=== PATIENT | female | born 1975 | race Caucasian/White ===

== ENCOUNTER 2016-03-08 12:31 | Emergency (ER) | payer MEDICARE, MEDICAID ==
[2016-03-08 12:37] VITALS: BP 157/72
[2016-03-08] MEDS ORDERED: NS 0.9% 1000 ML* 1,000 ML IV ONE (17:19)
[2016-03-08] MEDS ORDERED: fentaNYL* 50 MCG/ML 2 ML VIAL (100 MCG VIAL) IV ONE (17:19)
[2016-03-08] MEDS ORDERED: Ondansetron ODT TAB* 4 MG PO ONE (17:19)
[2016-03-08 18:23] LABS: Urine Bilirubin Negative (Negative); Urine Glucose Negative (Negative); Urine Nitrite Negative (Negative)
[2016-03-08 19:26] LABS: Potassium 3.9 mmol/L (3.5-5.0)
[2016-03-08 19:27] LABS: Albumin 4.4 g/dL (3.2-5.2); BUN/Creatinine Ratio 15.5 (8-20); C Reactive Protein 4.21 mg/L (< 5.00); Calcium 9.8 mg/dL (8.6-10.3); EGFR African American 116.1 (>60); EGFR Non-African American 90.3 (>60); Globulin 3.1 g/dL (2-4); Total Bilirubin 0.4 mg/dL (0.2-1.0); Total Protein 7.5 g/dL (6.4-8.9)
[2016-03-08] MEDS ORDERED: Iohexol 300* (CONTRAST) 10 ML SDV IV ONE (19:32)
--- NOTE | 2016-03-08 20:25 | RAD ---
INDICATION: LEFT side abdominal pain. Few episodes of emesis. COMPARISON: June 01, 2014 pelvic ultrasound and February 14, 2006 CT. TECHNIQUE: Multidetector CT images were obtained from the lung bases to the ischial tuberosities with 150 mL Omnipaque 300 IV and oral contrast. Multiplanar reformation. REPORT: Images through the inferior thorax are remarkable for mild cardiomegaly. 19.8 cm cephalocaudal liver is decreased in density consistent with fatty infiltration. No focal hepatic lesions evident. No CT abnormality of the gallbladder or pancreas. Negative for biliary dilatation. Unremarkable spleen. Small splenule at the splenic hilum. Negative for CT abnormality of the upper GI, small bowel, or appendix visualized on axial images 58-60. No CT abnormality of the colon. The colon is largely decompressed from the distal transverse colon through the rectum. Negative for ascites, free air, or hernias. Normal adrenal glands. Symmetric nephrograms and pyelograms. Normal variant extrarenal pelves. 1.5 cm nodule anterior and approximating the upper pole of the LEFT kidney is unchanged compared with the 2006 exam and demonstrates similar contrast enhancement and washout to the kidney most consistent with an accessory lobule of renal cortical tissue without concern given stability compared with the 2006 exam. No suspicious focal renal lesions. Unremarkable ureters and urinary bladder. Unremarkable anteverted uterus and RIGHT adnexal region. 9.0 x 10.0 x 9.7 cm sharply circumscribed thin-walled water density cystic lesion likely arises from the LEFT ovary or broad ligament is new compared with the 2006 exam. This may represent a new lesion compared with the 2014 ultrasound or interval enlargement of one of the previously noted LEFT ovarian cysts measuring up to 3.1 cm on the June 01, 2014 ultrasound exam. Negative for lymphadenopathy. Normal diameter abdominal aorta and common iliac arteries. Physiologic distention of the IVC. Obese body habitus and polyarticular degenerative arthropathy. No suspicious focal osseous lesions evident. IMPRESSION: Large water density cyst measuring up to 10 cm diameter in the LEFT para midline lower abdomen/pelvis likely arising from the LEFT ovary or broad ligament. While obesity will limit acoustic window consider pelvic ultrasound suggested for further assessment.
[2016-03-08 20:57] LABS: Add Diff/Slide Review? Slide Review Added; Comments Flag Yes; Hematocrit 22 % (35-47); Hemoglobin 6.5 g/dl (12.0-16.0); Mean Corpuscular HGB Conc 30 g/dl (31-36); Mean Corpuscular Hemoglobin 19 pg (27-31); Mean Corpuscular Volume 65 fL (80-97); Mean Platelet Volume 8 um3 (7.4-10.4); Red Blood Count 3.35 10^6/ul (4.0-5.4); Red Cell Distribution Width 19 % (10.5-15); White Blood Count 15.8 10^3/ul (3.5-10.8)
[2016-03-08 21:17] LABS: Hypochromasia 2+; Microcytosis 2+; Polychromasia 1+
[2016-03-08] MEDS ORDERED: Ferrous Sulfate TAB* 325 MG PO ONE (21:17)
[2016-03-08 21:19] LABS: Add Path Review? YES
--- NOTE | 2016-03-08 22:43 | RAD ---
Indication: Large LEFT para midline probable LEFT ovarian cyst noted on CT of the same date. Comparison: CT of the same date. Technique: Transabdominal pelvic ultrasound. Report: 13.8 x 4.8 x 6.6 cm anteverted uterus with 6.5 mm endometrium. No uterine lesions evident. 3.8 x 2.4 x 2.4 cm RIGHT ovary with documented vascular flow is remarkable for a unilocular 2.2 x 2.0 x 2.0 cm cyst without gross complex features consistent with a follicular cyst. 10.0 x 9.5 x 10.0 cm LEFT ovary with documented vascular flow is remarkable for a dominant 9.2 x 8.7 x 9.3 cm unilocular grossly simple cyst with a mildly thickened wall measuring up to 5 mm corresponding with the CT finding. In addition a 3.2 x 2.9 x 2.7 cm hypoechoic lesion of the LEFT ovary grossly devoid of intrinsic vascular flow is identified with suggestion of posterior acoustic enhancement which may represent an endometrioma, hemorrhagic cyst, or solid lesion. Minimal free fluid is noted in the LEFT adnexal region intervening between the ovary and the uterus. IMPRESSION: Enlarged LEFT ovary with dominant 9.2 cm grossly simple appearing cyst with mildly thickened wall. Normal vascular flow to the LEFT ovary documented however this does not exclude incomplete or intermittent torsion. Correlate with clinical presentation. Even in absence of clinical findings suspicious for torsion lesion excision should be considered for histopathologic assessment given the size of the lesion. In addition there is a less specific mildly hyperechoic 3.2 cm lesion of the LEFT ovary grossly devoid of intrinsic vascular flow on Doppler which may represent an endometrioma, hemorrhagic cyst, or solid lesion.
--- NOTE | 2016-03-08 23:08 | ED ---
Jean Oleary Rebecca, scribed for Jose L Nagy MD on 03/08/16 at 1721 . Abdominal Pain/Female - HPI Summary HPI Summary: Pt is a 40 y/o F who presents to ED c/o abd pain. Pain began suddenly at 1030 this morning and has been constant since onset. Pain is discrete to the LLQ without radiation, is characterized as sharp and currently severe, ranked 8/10. Sx aggravated and alleviated by nothing. Additionally c/o N/V and constipation. Denies diarrhea. No previous similar episodes. No medication allergies. PSHx tubal ligation. - History of Current Complaint Chief Complaint: EDAbdPain Stated Complaint: LT SIDE ABD PAIN / VOMITING Time Seen by Provider: 03/08/16 17:14 Hx Obtained From: Patient Onset/Duration: Sudden Onset, Lasting Hours, Still Present Timing: Constant Severity Initially: Moderate Severity Currently: Severe Pain Intensity: 8 Pain Scale Used: 0-10 Numeric Location: Discrete At: LLQ Radiates: No Character: Sharp Aggravating Factor(s): Nothing Alleviating Factor(s): Nothing Associated Signs and Symptoms: Positive: Constipation, Nausea, Vomiting. Negative: Diarrhea Allergies/Adverse Reactions: Allergies Allergy/AdvReac Type Severity Reaction Status Date / Time No Known Allergies Allergy Verified 04/03/15 19:11 PMH/Surg Hx/FS Hx/Imm Hx Endocrine/Hematology History: Reports: Hx Thyroid Disease - synthroid Denies: Hx Anticoagulant Therapy, Hx Diabetes Cardiovascular History: Reports: Hx Hypercholesterolemia, Hx Hypertension - meds Denies: Hx Pacemaker/ICD Respiratory History: Reports: Hx Sleep Apnea - new cpap user, good compliance Denies: Hx Asthma, Hx Chronic Obstructive Pulmonary Disease (COPD) History: Denies: Hx Renal Disease Musculoskeletal History: Reports: Other Musculoskeletal History - obesity Neurological History: Denies: Hx Dementia, Hx Seizures Psychiatric History: Denies: Hx Substance Abuse - Surgical History Surgery Procedure, Year, and Place: TUBAL LIGATION Infectious Disease History: No Infectious Disease History: Denies: Hx Hepatitis, Hx Human Immunodeficiency Virus (HIV), Traveled Outside the [place] in Last 30 Days - Family History Known Family History: Positive: Hypertension, Diabetes - Social History Alcohol Use: None Substance Use Type: Reports: None Hx Tobacco Use: No Smoking Status (MU): Never Smoked Tobacco Have You Smoked in the Last Year: No Review of Systems Positive: Abdominal Pain - LLQ, Vomiting, Nausea. Negative: Diarrhea Positive: other - Constipation All Other Systems Reviewed And Are Negative: Yes Physical Exam - Summary Physical Exam Summary: VITAL SIGNS: Reviewed. GENERAL: Patient is an obese female who is lying comfortable in the stretcher. Patient is not in any acute respiratory distress. HEAD AND FACE: Normocephalic and atraumatic. EYES: PERRLA, EOMI x 2, No injected conjunctiva. EARS: Hearing grossly intact. Ear canals and tympanic membranes are WNL. MOUTH: Oropharynx within normal limits. NECK: Supple, trachea is midline, no adenopathy, no JVD. CHEST: Symmetric, no tenderness at palpation LUNGS: Clear to auscultation bilaterally. No wheezing or crackles. CVS: RRR,, S1 and S2 present, no murmurs or gallops appreciated. ABDOMEN: Soft, LLQ tenderness. No signs of distention. Positive bowel sounds. No rebound no guarding, and no masses palpated. No abdominal bruit or pulsations. EXTREMITIES: FROM in all major joints, no edema, no cyanosis or clubbing. NEURO: Alert and oriented x 3. No acute neurological deficits. Speech is normal. SKIN: Dry and warm Vital Signs On Initial Exam: Initial Vitals Temp Pulse Resp BP Pulse Ox 97.2 F 89 16 157/72 100 03/08/16 12:34 03/08/16 12:34 03/08/16 12:34 03/08/16 12:34 03/08/16 12:34 Diagnostics - Vital Signs Vital Signs Temp Pulse Resp BP Pulse Ox 03/08/16 12:34 97.2 F 89 16 157/72 100 - Laboratory Result Diagrams: 03/08/16 20:45 03/08/16 18:58 Lab Statement: Any lab studies that have been ordered have been reviewed, and results considered in the medical decision making process. - CT CT Abd/Pel CT Interpretation Completed By: Radiologist - Large water density cyst measuring up to 10 cm diameter in the LEFT para midline lower abdomen/pelvis likely arising from the LEFT ovary or broad ligament. While obesity will limit acoustic window consider pelvic ultrasound suggested for further assessment. - Ultrasound No standard instances Ultrasound Interpretation Completed By: Radiologist - Pelvic US - Enlarged LEFT ovary with dominant 9.2 cm grossly simple appearing cyst with mildly thickened wall. Normal vascular flow to the LEFT ovary documented however this does not exclude incomplete or intermittent torsion. Correlate with clinical presentation. Even in absence of clinical findings suspicious for torsion lesion excision should be considered for histopathologic assessment given the size of the lesion. In addition there is a less specific mildly hyperechoic 3.2 cm lesion of the LEFT ovary grossly devoid of intrinsic vascular flow on Doppler which may represent an endometrioma, hemorrhagic cyst, or solid lesion. Abdominal Pain Fem Course/Dx - Course Course Of Treatment: 40 y/o F who presents to ED with a CC of LLQ pain. Pt reports she has been having sx for last couple days, just worse in last couple hours. Denies any N/V/D or constipation. Denies any vaginal discharge or bleeding. LNMP was from the beginning of November to March 04. The pt has been bleeding for approx. 3-4 months. Test results show anemia. Abd/Pel CT shows ovarian cyst which is corroborated with an US. There are no signs of torsion and it has normal flow of the L ovary. The pt was given Fentanyl for the pain and the sx resolved. The pt was observed for the last couple of hours in the ER and the pain did not return. I disclosed my PE and findings with Dr. Lange and he does not recommend any blood transfusion at this time. Recommends an outpatient follow up for further workup and management. Seeing as the pain has resolved and did not return I do not suspect intermittent or partial ovarian torsion. Pt declines pelvic exam. Seeing as patient is asymptomatic patient will be d/c to home with follow up with [facility] which she usually sees an RADIO MECHANIC doctor for. Pt was instructed to return to ED if she develops any other type of pain, any N/V or any vaginal bleeding. The pt is hemodynamically stable, AxOx3. I discussed all the findings and test results with the patient and patient. Patient was instructed to return to the emergency room immediately if any of the symptoms return or worsens. They understand and agree. They were explained the possibility of an early abdominal pathology which was not detected at this time despite the physical exam and testing. They understand and agree. Abdominal exam before discharge: Soft,NT. No signs of distention. BS present. No rebound no guarding, and no masses palpated. Patient is alert and oriented. Patient is hemodynamically stable. Patient is to follow up with primary care physician in the next 24 hours. Patient and patients parents agree and understands. - Diagnoses Provider Diagnoses: Ovarian cyst, Anemia - Provider Notifications Discussed Care Of Patient With: Dr. Lange, RADIO MECHANIC, who advises that she follow up as an outpatient and recommends against a transfusion. Time Discussed With Above Provider: 21:18 Discharge - Discharge Plan Condition: Stable Disposition: HOME Patient Education Materials: Ovarian Cyst (ED), Anemia (ED) Referrals: Jessica Carmona MD [Primary Care Provider] - 3 Days (Follow up with your primary care physician within the next 3 days. ) Lexis Lange MD [Medical Doctor] - 3 Days (Follow up with Dr. Lange, OB/ SHOP TECHNICIAN, within the next 3 days. ) Additional Instructions: Return to ED for any returning or worsening symptoms. The documentation as recorded by the Jean barton Rebecca accurately reflects the service I personally performed and the decisions made by Yakov conway Walter, MD.
== END 2016-03-08 23:22 | disposition home or self-care (01) ==
LOC: ED 12:31
DX: N83.209 Unspecified ovarian cyst, unspecified side (principal); D64.9 Anemia, unspecified; R10.32 Left lower quadrant pain
CPT/HCPCS: 36415; 74177; 76856; 80053; 81003; 82150; 83690; 85025; 85060; 86140; 96361; 96374; 99283; A9270-GY; J3010; Q9967

== ENCOUNTER → 2016-05-26 08:09 | Day surgery (SDC) | payer MEDICARE, MEDICAID ==
[~2016-05-26 08:09] MED LIST: Buffered Lidocaine 1% SYR 3ML* 3 ML/SYR SYRINGE INTRADERM ONE; Bupivacaine 0.5% W/EPI SDV* 30 ML VIAL ONE; Dexamethasone IV* 4 MG/ML 1 ML (4 MG) ONE; Famotidine IV* 10 MG/ML 2 ML (20 mg) IV ONE; Famotidine IV* 10 MG/ML 2 ML (20 mg) ONE; KETAMINE HCL* 50 MG/ML 10 ML VIAL ONE; Ketorolac INJ* 30 MG/ML 1 ML VIAL ONE; Lidocaine 1% INJ* 10 MG/ML 30 ML SDV ONE; Lidocaine 2% PF * 5 ML VIAL ONE; Metoclopramide TAB* 10 MG ONE; Metoclopramide TAB* 10 MG PO ONE; Midazolam* 1 MG/ML 2 ML VIAL (2 MG) ONE; Midazolam* 1 MG/ML 5 ML VIAL (5 MG) ONE; Ondansetron INJ* 2 MG/ML VIAL IV PRN; Ondansetron INJ* 2 MG/ML VIAL ONE; Propofol* 10 MG/ML 20 ML BTL IV PUSH ONE; fentaNYL* 50 MCG/ML 2 ML VIAL (100 MCG VIAL) IV PRN; fentaNYL* 50 MCG/ML 2 ML VIAL (100 MCG VIAL) ONE; oxyCODONE/Acetamin 5/325 MG* TAB PO PRN
--- NOTE | 2016-05-26 11:51 | SURGPN ---
Brief Operative Note - Surgery Procedures: Procedures ANESTH INJECT-SPIN CANAL (02/07/01) ARTIF RUPT MEMBRANES NEC (02/07/01) DX PROC FETUS/AMNION NEC (04/29/98) EPISIOTOMY (05/05/98) MONITORING NOS (02/07/01) LOW CERVICAL (02/07/01) 05/26/16 Op Note Pre-op dx: occult breast cancer Post-op dx: same Procedure: Power port placement Surgeon: Ole Asst: none Anesth: local-MAC EBL 5 cc Complications: none Pt. tolerated procedure well and was transferred to in a stable condition. CLFoster
--- NOTE | 2016-05-26 12:31 | RAD ---
INDICATION: Power port placement. COMPARISON: Comparison is made with a prior chest x-ray study from every 2012. TECHNIQUE: A portable view of the chest was obtained. FINDINGS: There is a power port central venous catheter entering on the right side. The catheter tip projects over the region of the superior vena cava. There appears to be a slight kink in the catheter in the subclavian region. The heart is within normal limits in size. The lungs are underinflated. There are small infiltrates present in the right upper lobe and at the right lung base. No pleural effusion or pneumothorax is seen. IMPRESSION: 1. STATUS POST CENTRAL VENOUS CATHETER PLACEMENT. THERE IS A MILD KINK IN THE CATHETER IN THE SUBCLAVIAN REGION. 2. NO EVIDENCE FOR PNEUMOTHORAX. 3. SMALL RIGHT SIDED INFILTRATES.
--- NOTE | 2016-05-26 12:37 | RAD ---
CPT II Codes: 6045F INDICATION: PowerPort placement Fluoroscopic services provided for referring physician. 98.1 seconds of fluoroscopy time was used. One spot image demonstrates placement of a catheter in the superior vena cava. IMPRESSION: PowerPort placed in the superior vena cava.
[2016-05-26 12:52] VITALS: BP 121/68
--- NOTE | 2016-05-27 00:34 | OP ---
CC: [facility]; [facility] OPERATIVE REPORT: DATE OF OPERATION: 05/26/16 DATE OF : 71 SURGEON: Macrina Handy MD PORTAL ARCHITECT: There was no energy assistant for this case. PRE-OP DIAGNOSIS: Breast cancer. POST-OP DIAGNOSIS: Breast cancer. OPERATIVE PROCEDURE: PowerPort placement. INDICATIONS: Ms. Landeros is a 40-year-old woman, who is to undergo neoadjuvant chemotherapy thus need ing a port. DESCRIPTION OF PROCEDURE: She was brought to the operating room, placed on the OR table in a supine position and given IV sedation. The chest wall was prepped and draped in the usual sterile fashion after infiltrating with local anesthetic using a Seldinger technique. Wire was placed in the right subclavian vein under fluoroscopic visualization. Then, a port pocket was created. This was done by making an incision on the chest wall after infiltrating with local anesthetic and creating a pock et using electrocautery inferiorly. Once the pocket was of a size to accommodate the port, the cath eter was tunneled from the wire exit site to the port pocket site and then under fluoroscopic visual ization, the dilator and the introducer were placed over the wire into the right subclavian vein and then the dilator and wire were removed and the catheter was advanced through the introducer into th e right subclavian vein in to the superior vena cava under fluoroscopic visualization. The patient' s body habitus was such that there was a very short distance between the subclavian vein and the hea rt so the tip was barely in the superior vena cava. It was trimmed to the appropriate length and at tached to the port. The port was inserted into the pocket and secured to the chest wall using 2- 0 Surgipro stitches. The function of the port was checked. Then closure of the incision was accompli shed with 3-0 Polysorb in a subcutaneous layer and the skin was closed with 4-0 Surgipro in a subcut icular fashion. Steri-Strips and a dry sterile dressing were applied. All sponge and instrument co unts were correct. The patient tolerated the procedure well and was transferred to Recovery in a st able condition. [id number]/[facility] #: [id number]
== END | disposition home or self-care (01) ==
LOC: OR 08:09
PROVIDERS: ATTEND Surgery
PROC: 0JH60XZ Insertion of Tunneled Vascular Access Device into Chest Subcutaneous Tissue and Fascia, Open Approach (ICD-10-PCS; principal; 2016-05-26 09:30)
DX: C50.912 Malignant neoplasm of unspecified site of left female breast (principal)
CPT/HCPCS: 71010; 76000; A9270-GY; C1788; J1100; J1642; J1885; J2250; J2405; J2704; J3010

== ENCOUNTER 2016-11-10 07:08 | Day surgery (SDC) | payer MEDICARE, MEDICAID ==
[~2016-11-10 07:08] MED LIST changes: +Buffered Lidocaine 0.9% SYRIN* 5 ML/SYR SYRINGE INTRADERM ONE; +Buffered Lidocaine 0.9% SYRIN* 5 ML/SYR SYRINGE ONE; -Buffered Lidocaine 1% SYR 3ML* 3 ML/SYR SYRINGE INTRADERM ONE; -Bupivacaine 0.5% W/EPI SDV* 30 ML VIAL ONE; -Dexamethasone IV* 4 MG/ML 1 ML (4 MG) ONE; -Famotidine IV* 10 MG/ML 2 ML (20 mg) IV ONE; -Famotidine IV* 10 MG/ML 2 ML (20 mg) ONE; +Heparin VIAL(*) 5000 UNITS/ML VIAL (FIVE THOUSAND) ONE; -KETAMINE HCL* 50 MG/ML 10 ML VIAL ONE; -Ketorolac INJ* 30 MG/ML 1 ML VIAL ONE; -Lidocaine 1% INJ* 10 MG/ML 30 ML SDV ONE; -Lidocaine 2% PF * 5 ML VIAL ONE; +Lidocaine 2.5%/Prilocain 2.5%* 5 GM TUBE ONE; -Metoclopramide TAB* 10 MG ONE; -Metoclopramide TAB* 10 MG PO ONE; -Midazolam* 1 MG/ML 2 ML VIAL (2 MG) ONE; -Midazolam* 1 MG/ML 5 ML VIAL (5 MG) ONE; -Ondansetron INJ* 2 MG/ML VIAL IV PRN; -Ondansetron INJ* 2 MG/ML VIAL ONE; -Propofol* 10 MG/ML 20 ML BTL IV PUSH ONE; -fentaNYL* 50 MCG/ML 2 ML VIAL (100 MCG VIAL) IV PRN; -fentaNYL* 50 MCG/ML 2 ML VIAL (100 MCG VIAL) ONE; -oxyCODONE/Acetamin 5/325 MG* TAB PO PRN
[2016-11-10] MEDS ORDERED: Bupivacaine 0.5% SDV PF* 30 ML VIAL ONE (09:39)
[2016-11-10] MEDS ORDERED: Lidocaine 1% INJ* 10 MG/ML 30 ML SDV ONE (09:39)
[2016-11-10] MEDS ORDERED: Lidocaine 1% MPF wEPI 200,000* 30 ML SDV ONE (09:39)
[2016-11-10] MEDS ORDERED: Famotidine IV* 10 MG/ML 2 ML (20 mg) IV ONE (09:40)
[2016-11-10] MEDS ORDERED: Dexamethasone IV* 4 MG/ML 1 ML (4 MG) IV SLOW PU ONE (09:40)
[2016-11-10] MEDS ORDERED: Dexamethasone IV* 4 MG/ML 1 ML (4 MG) ONE (09:43)
[2016-11-10] MEDS ORDERED: Famotidine IV* 10 MG/ML 2 ML (20 mg) ONE (09:43)
[2016-11-10] MEDS ORDERED: Midazolam* 1 MG/ML 2 ML VIAL (2 MG) ONE (09:44)
[2016-11-10] MEDS ORDERED: fentaNYL* 50 MCG/ML 2 ML VIAL (100 MCG VIAL) ONE ×3 (09:44→12:05)
[2016-11-10] MEDS ORDERED: Ondansetron INJ* 2 MG/ML VIAL ONE (10:20)
[2016-11-10] MEDS ORDERED: Propofol* 10 MG/ML 20 ML BTL IV PUSH ONE (10:20)
[2016-11-10] MEDS ORDERED: Lidocaine 2% PF * 5 ML VIAL ONE (10:20)
[2016-11-10] MEDS ORDERED: Ketorolac INJ* 30 MG/ML 1 ML VIAL ONE (10:20)
[2016-11-10] MEDS ORDERED: Phenylephrine IV* 40 MCG/ML 10 ML SYRINGE ONE (10:20)
--- NOTE | 2016-11-10 11:44 | SURGPN ---
Brief Operative Note - Surgery Procedures: Procedures ANESTH INJECT-SPIN CANAL (02/07/01) ARTIF RUPT MEMBRANES NEC (02/07/01) DX PROC FETUS/AMNION NEC (04/29/98) EPISIOTOMY (05/05/98) MONITORING NOS (02/07/01) INSERTION OF VAD INTO CHEST SUBCU/FASCIA, OPEN APPROACH (05/26/16) LOW CERVICAL (02/07/01) 11/10/16 Op Note Pre-Op Dx: left breast cancer Post-op dx: same Procedure: needle localization excision of left breast cancer and axillary dissection Surgeon: Ole Asst: Kelton Valdovinos PAS Anesth: general EBL: 25 cc SCDs on during surgery Abx: given pre-op Pt. tolerated procedure well and was transferred to in a stable condition. CLFoster
[2016-11-10] MEDS ORDERED: oxyCODONE/Acetamin 5/325 MG* TAB PO PRN ×2 (11:45)
[2016-11-10] MEDS ORDERED: DiMENhydriNATE IV* 50 MG/ML VIAL IV PUSH PRN (12:01)
[2016-11-10] MEDS ORDERED: fentaNYL* 50 MCG/ML 2 ML VIAL (100 MCG VIAL) IV PRN (12:01)
[2016-11-10] MEDS ORDERED: DiMENhydriNATE IV* 50 MG/ML VIAL ONE (12:05)
--- NOTE | 2016-11-10 12:55 | RAD ---
Indication: Left breast cancer. Informed consent was obtained from the patient. Using usual aseptic technique and lidocaine as a local anesthetic a 7.5 cm needle was placed adjacent to the surgical clip noted in the left breast. A 7.5 cm wire was then placed. Specimen radiograph demonstrates the localized clip to be within the specimen. IMPRESSION: Successful needle localization of radio opaque marker in the left breast.
[2016-11-10] MEDS ORDERED: Metoclopramide IV* 5 MG/ML 2 ML VIAL ONE (12:58)
[2016-11-10] MEDS ORDERED: Scopolamine 1.5 mg* PATCH ONE (12:58)
[2016-11-10] MEDS ORDERED: oxyCODONE/Acetamin 5/325 MG* TAB ONE (14:08)
[2016-11-10 14:36] VITALS: BP 155/79
--- NOTE | 2016-11-11 02:51 | OP ---
AMENDED REPORT NOW INCLUDES DATE OF OPERATION - ESIGNED BEFORE ADJUSTMENT * CC: Dr. Sue Farnsworth; Dr. Shannen Anand; Dr. London Richardson * DATE OF OPERATION: 11/10/16 - [facility] DATE OF : 71 SURGEON: Macrina Handy MD AGENCY RECRUITER: SHARON Richards, ARIES Alas ANESTHESIOLOGIST: Serjio Orona MD ANESTHESIA: General PRE-OP DIAGNOSIS: Left breast cancer. POST-OP DIAGNOSIS: Left breast cancer. OPERATIVE PROCEDURE: Needle localization, excision of left breast cancer and axillary dissection. INDICATIONS: Ms. Landeros is a 41-year-old woman with the diagnosis of breast cancer, who underwent neoadjuvant chemotherapy for known positive breast cancer. She was prepared for surgery after completion of chemotherapy and underwent needle localization on the morning of the surgery. DESCRIPTION OF PROCEDURE: She was brought to the operating room, placed on the OR table in a supine position and given general anesthesia. The left breast and axilla were prepped and draped in the usual sterile fashion. After infiltrating with local anesthetic, a curvilinear incision was made in the breast, positioned over the estimated tip of the wire. Subcutaneous tissue was then divided with electrocautery when the wire was encountered, it was withdrawn through the skin into the wound and continued dissection with electrocautery was done to remove a mass of tissue from around the tip of the wire. The specimen was marked in the usual fashion and handed off, identified as left breast cancer. Hemostasis was assured with electrocautery. The wound was irrigated with saline and clips were placed in the cavity to sonia its confines. Then closure was accomplished. This was done with 3-0 Polysorb in the subcutaneous layer and the skin was closed with 4- 0 Surgipro in a subcuticular fashion. Prior to closing, some additional local was instilled into the wound. Attention was then turned to the axilla here. A curvilinear incision was made. Subcutaneous tissue was divided with electrocautery down to the level of the pectoralis muscle. The axillary contents were identified and swept posteriorly from the pectoralis muscle and inferiorly from the axillary vein. Clips were used to control lymphatic and blood vessels that were encountered. The structures consistent with intercoastal brachial nerve was clipped and divided and then axillary contents were continued to be dissected from surrounding tissue using primarily blunt and some sharp dissection. Once the axillary contents were removed, they were handed off as a specimen. An additional massive form tissue was identified adherent to the latissimus dorsi muscle. This was dissected free and handed off as additional axillary contents. The long thoracic and thoracodorsal nerves were identified by function and found to be intact. Then, the wound was irrigated with saline. Bleeding was controlled with electrocautery and additional clip placement and then closure was accomplished after placing a GIANCARLO drain to emerge from a stab wound in the midaxillary line. A 3- 0 Polysorb was used to close the subcutaneous layer and the skin was closed with 4- 0 Surgipro in the subcuticular fashion. The GIANCARLO drain was secured with a 3-0 Surgipro stitch. All sponge, Steri-Strips and dry sterile dressing were applied to both incisions. All sponge and instrument counts were correct. The patient tolerated the procedure well and was transferred to Recovery in a stable condition. [id number]/[facility] #: [id number] KATHERIN
== END 2016-11-10 14:37 | disposition home or self-care (01) ==
LOC: SDS 07:08
PROVIDERS: ATTEND Surgery
DX: C50.912 Malignant neoplasm of unspecified site of left female breast (principal); C77.3 Secondary and unspecified malignant neoplasm of axilla and upper limb lymph nodes; E03.9 Hypothyroidism, unspecified; Z68.43 Body mass index [BMI] 50.0-59.9, adult; G47.33 Obstructive sleep apnea (adult) (pediatric); D64.81 Anemia due to antineoplastic chemotherapy
CPT/HCPCS: 88307; A9270-GY; J0690; J1100; J1240; J1644; J1885; J2001; J2250; J2405; J2704; J2765; J3010

== ENCOUNTER 2016-11-17 09:53 | Day surgery (SDC) | payer MEDICARE, MEDICAID ==
[~2016-11-17 09:53] MED LIST changes: -Buffered Lidocaine 0.9% SYRIN* 5 ML/SYR SYRINGE ONE; -Heparin VIAL(*) 5000 UNITS/ML VIAL (FIVE THOUSAND) ONE; -Lidocaine 2.5%/Prilocain 2.5%* 5 GM TUBE ONE
[2016-11-17] MEDS ORDERED: Buffered Lidocaine 0.9% SYRIN* 5 ML/SYR SYRINGE ONE (10:06)
[2016-11-17] MEDS ORDERED: Bupivacaine 0.5% SDV PF* 30 ML VIAL ONE (11:39)
[2016-11-17] MEDS ORDERED: Lidocaine 1% INJ* 10 MG/ML 30 ML SDV ONE (11:39)
[2016-11-17] MEDS ORDERED: ceFAZolin 2 GM PREMIX (*) 50 ML IVPB ONE (11:49)
[2016-11-17] MEDS ORDERED: Midazolam* 1 MG/ML 5 ML VIAL (5 MG) ONE ×2 (11:51→12:17)
[2016-11-17] MEDS ORDERED: fentaNYL* 50 MCG/ML 2 ML VIAL (100 MCG VIAL) ONE ×3 (12:05→13:57)
[2016-11-17] MEDS ORDERED: KETAMINE HCL* 50 MG/ML 10 ML VIAL ONE (12:24)
[2016-11-17] MEDS ORDERED: HYDROmorphone INJ* 1 MG/ML CARPUJECT SYRINGE IV PRN (12:29)
[2016-11-17] MEDS ORDERED: Ondansetron INJ* 2 MG/ML VIAL IV PRN (12:29)
[2016-11-17] MEDS ORDERED: DiMENhydriNATE IV* 50 MG/ML VIAL IV PUSH PRN (12:29)
[2016-11-17] MEDS ORDERED: HYDROcodone/ACETAMIN 5-325 MG* 1 TAB PO PRN ×2 (12:29→13:49)
[2016-11-17] MEDS ORDERED: oxyCODONE TAB* 5 MG TAB PO PRN (12:29)
[2016-11-17] MEDS ORDERED: Propofol* 10 MG/ML 20 ML BTL IV PUSH ONE (13:10)
--- NOTE | 2016-11-17 13:43 | SURGPN ---
Brief Operative Note - Surgery Procedures: Pre op dx: Left breast cancer Post op dx: same Procedure: Wide re-excision left breast cancer Anesthesia: MAC/ local - Dr. Valero Surgeon: Dr. Handy Assist: Kelton BRADFORD EBL: ~100 mL Specimen: Left breast CA Fluids: LR 1600 mL Drains: GIANCARLO drain Findings: see dictation
[2016-11-17] MEDS: fentaNYL* 50 MCG/ML 2 ML VIAL (100 MCG VIAL) IV PRN ×3 (14:00→14:15)
[2016-11-17] MEDS ORDERED: HYDROcodone/ACETAMIN 5-325 MG* 1 TAB ONE (14:44)
[2016-11-17 15:24] VITALS: BP 141/89
--- NOTE | 2016-11-18 05:38 | OP ---
CC: [facility]; [facility]; Dr. Shannen Anand; Dr. London Richardson OPERATIVE REPORT: DATE OF OPERATION: 11/17/16 DATE OF : 71 SURGEON: Macrina Handy MD FLAME PLANER: Rachel HERRERA student. PRE-OP DIAGNOSIS: Left breast cancer. POST-OP DIAGNOSIS: Left breast cancer. OPERATIVE PROCEDURE: Wide re-excision of left breast cancer. INDICATIONS: Ms. Landeros is a 41-year-old woman who has recently undergone preoperative chemotherapy and then excision of her left breast cancer and axillary dissection. The excision specimen was found to have positive margins and plans were made for wide re-excision. DESCRIPTION OF PROCEDURE: She was brought to the operating room, placed on the OR table in a supine position and given IV sedation. The left breast was prepped and draped in the usual sterile fashion taking care not to dislodge the GIANCARLO drain emerging from the axilla. After infiltrating with local anesthetic, a curvilinear elliptical incision encompassing the previous scar was made and subcutaneous tissue was divided with electrocautery to excise the mass of tissue from around the previous cavity as well as could be obtained. At some places, the tissue split apart opening the cavity, but all effort was made to obtain tissue from completely around the cavity. Once the specimen was out, it was marked in the usual fashion and then handed off as the specimen. The wound was hemostased with electrocautery and suture ligature. Once this appeared adequate, the wound was irrigated with saline and then closure was accomplished. 3-0 Polysorb was used to close the subcutaneous tissue and the skin was closed with 4-0 Surgipro in a subcuticular fashion. Steri-Strips and a dry sterile dressing were applied. All sponge and instrument counts were correct. The patient tolerated the procedure well and was transferred to Recovery in a stable condition. [id number]/[facility] #: [id number] MTDD
== END 2016-11-17 15:25 | disposition home or self-care (01) ==
LOC: OR 09:53
PROVIDERS: ATTEND Surgery
DX: C50.912 Malignant neoplasm of unspecified site of left female breast (principal); I10 Essential (primary) hypertension; E03.9 Hypothyroidism, unspecified; E66.9 Obesity, unspecified; Z68.43 Body mass index [BMI] 50.0-59.9, adult; G47.33 Obstructive sleep apnea (adult) (pediatric); D64.9 Anemia, unspecified
CPT/HCPCS: 88307; J0690; J2001; J2250; J2704; J3010

== ENCOUNTER → 2017-04-04 06:26 | Day surgery (SDC) | payer MEDICARE, MEDICAID ==
[~2017-04-04 06:26] MED LIST changes: +Famotidine TAB* 20 MG ONE; +Famotidine TAB* 20 MG PO ONE; +Scopolamine 1.5 mg* PATCH ONE; +Scopolamine 1.5 mg* PATCH TRANSDERM ONE; +Scopolamine PATCH Remove* 1 NOTE MISC PATCH OFF ONE; +Sodium Citrate/Citric Acid* 15 ML UDC ONE; +Sodium Citrate/Citric Acid* 15 ML UDC PO ONE; +ceFOXitin 2 GM IVPREMIX* 0 GM/0 ML BAG ONE
== END | disposition home or self-care (01) ==
LOC: OR 06:26
PROVIDERS: ATTEND Obstetrics & Gynecology
DX: Z02.9 Encounter for administrative examinations, unspecified (principal)
CPT/HCPCS: A9270-GY; J0694

== ENCOUNTER 2017-08-22 06:22 | Observation (INO) | payer MEDICARE, MEDICAID ==
[~2017-08-22 06:22] MED LIST changes: -Famotidine TAB* 20 MG ONE; -Famotidine TAB* 20 MG PO ONE; -Scopolamine 1.5 mg* PATCH ONE; -Scopolamine 1.5 mg* PATCH TRANSDERM ONE; -Scopolamine PATCH Remove* 1 NOTE MISC PATCH OFF ONE; -Sodium Citrate/Citric Acid* 15 ML UDC ONE; -Sodium Citrate/Citric Acid* 15 ML UDC PO ONE; -ceFOXitin 2 GM IVPREMIX* 0 GM/0 ML BAG ONE
[2017-08-22] MEDS ORDERED: ceFAZolin 2 GM PREMIX (*) 2 GM/50 ML BAG IVPB ONE (06:41)
[2017-08-22] MEDS ORDERED: Buffered Lidocaine 0.9% SYRIN* 5 ML/SYR SYRINGE ONE (06:41)
[2017-08-22] MEDS ORDERED: ceFAZolin 1 GM in Dextrose (*) 1 GM/50 ML BAG IVPB ONE (06:41)
[2017-08-22] MEDS ORDERED: fentaNYL* 50 MCG/ML 2 ML VIAL (100 MCG VIAL) ONE ×2 (07:10→09:06)
[2017-08-22] MEDS ORDERED: Midazolam* 1 MG/ML 2 ML VIAL (2 MG) ONE (07:10)
[2017-08-22] MEDS ORDERED: Bupivacaine 0.5% SDV PF* 30ML VIAL ONE (07:18)
[2017-08-22] MEDS ORDERED: Succinylcholine* 20 MG/ML 10 ML VIAL ONE (07:39)
[2017-08-22] MEDS ORDERED: Cisatracurium* 2 MG/ML MDV 5 ML ONE ×2 (07:39→08:45)
[2017-08-22] MEDS ORDERED: Famotidine IV* 10 MG/ML 2 ML (20 mg) ONE (07:39)
[2017-08-22] MEDS ORDERED: Dexamethasone IV* 4 MG/ML 1 ML (4 MG) ONE (07:39)
[2017-08-22] MEDS ORDERED: Propofol* 10 MG/ML 20 ML BTL IV PUSH ONE ×2 (07:39→07:47)
[2017-08-22] MEDS ORDERED: HYDROmorphone INJ* 0.5 MG/0.5 ML SYRINGE ONE ×2 (07:47→09:06)
[2017-08-22] MEDS ORDERED: DiMENhydriNATE IV* 50 MG/ML VIAL ONE (08:01)
[2017-08-22] MEDS ORDERED: Nalbuphine* 10 MG/ML 1 ML VIAL IV PRN (09:19)
[2017-08-22] MEDS ORDERED: Acetaminophen IV 1GM/100ML * 1,000 MG/100 ML VIAL IVPB ONE (09:19)
[2017-08-22] MEDS ORDERED: Levalbuterol 0.63MG/3ML NEB* UNIT OF USE INH PRN (09:19)
[2017-08-22] MEDS ORDERED: Ondansetron ODT TAB* 4 MG PO PRN (09:19)
[2017-08-22] MEDS ORDERED: fentaNYL* 50 MCG/ML 2 ML VIAL (100 MCG VIAL) IV PRN (09:19)
[2017-08-22] MEDS ORDERED: Naloxone* 0.4 MG/ML 1 ML VIAL IV PRN (09:19)
[2017-08-22] MEDS ORDERED: PROCHLORPERAZINE INJ 5 MG/ML 2 ML VIAL IV PRN (09:19)
[2017-08-22] MEDS ORDERED: oxyCODONE TAB* 5 MG TAB PO PRN (09:19)
[2017-08-22] MEDS ORDERED: HYDROmorphone INJ* 2 MG/ML CARPUJECT SYRINGE ONE (11:06)
[2017-08-22] MEDS: HYDROmorphone INJ* 1 MG/ML CARPUJECT SYRINGE IV PRN ×2 (11:15→11:33)
[2017-08-22] MEDS ORDERED: Nalbuphine* 10 MG/ML 1 ML VIAL ONE (11:26)
[2017-08-22] MEDS ORDERED: oxyCODONE/Acetamin 5/325 MG* TAB ONE ×2 (11:45→11:48)
[2017-08-22] MEDS ORDERED: Ondansetron ODT TAB* 4 MG ONE (11:45)
[2017-08-22] MEDS: oxyCODONE/Acetamin 5/325 MG* TAB PO PRN ×3 (11:47→23:37)
[2017-08-22] MEDS: Docusate CAP* 100 MG PO SCH (12:46)
[2017-08-22] MEDS ORDERED: Ondansetron 40 MG VIAL* 2 MG/ML 20 ML VIAL IV PRN (16:57)
[2017-08-22] MEDS: Ibuprofen TAB* 600 MG PO PRN (17:12)
[2017-08-23 05:55] LABS: ABS Basophils 0 10^3/ul (0-0.2); ABS Eosinophils 0 10^3/ul (0-0.6); ABS Monocytes 0.6 10^3/ul (0-0.8); ABS Neutrophils 8.8 10^3/ul (1.5-7.7); ABS Nucleated RBC 0 10^3/ul; Eosinophil % 0.3 % (0-6); Hematocrit 35 % (35-47); Hemoglobin 11.9 g/dl (12.0-16.0); Lymphocyte % 9.6 % (25-47); Mean Corpuscular HGB Conc 35 g/dl (31-36); Mean Corpuscular Hemoglobin 30 pg (27-31); Mean Corpuscular Volume 86 fL (80-97); Mean Platelet Volume 8.3 um3 (7.4-10.4); Nucleated Red Blood Cells % 0.1; Platelet Count 194 10^3/ul (150-450); Red Blood Count 4.01 10^6/ul (4.00-5.40); Red Cell Distribution Width 14 % (10.5-15); White Blood Count 10.5 10^3/ul (3.5-10.8)
[2017-08-23] MEDS: Ibuprofen TAB* 600 MG PO PRN (08:37)
[2017-08-23] MEDS: Docusate CAP* 100 MG PO SCH (08:37)
[2017-08-23 08:44] VITALS: BP 147/81
[2017-08-23] MEDS ORDERED: Prochlorperazine TAB* 10 MG PO PRN (08:59)
[2017-08-23] MEDS ORDERED: Metoprolol Succinate XL TAB* 25 MG PO SCH (09:00)
[2017-08-23] MEDS ORDERED: Potassium Chlor TAB* 10 MEQ TAB.ER PO SCH (09:00)
[2017-08-23] MEDS ORDERED: Levothyroxine TAB* 112 MCG TAB PO SCH (09:00)
[2017-08-23] MEDS ORDERED: amLODIPine TAB* 5 MG PO SCH (09:00)
[2017-08-23] MEDS ORDERED: Lisinopril TAB* 5 MG PO SCH (09:00)
--- NOTE | 2017-08-23 10:48 | SURGPN ---
Subjective - Introduction -: Mrs. Landeros is a 41 y/o with breast cancer and a persistent/symptomatic left ovarian cystic mass. ] Admitted on: [08/22/17] Patient's surgical date: 08/22/17 Procedure completed: Diagnostic laparoscopy followed by laparotomy left oophorectomy and right salpingoophorectomy and lysis of adhesions. - Medications -: Active Medications Generic Name Dose Route Start Last Admin Trade Name Freq PRN Reason Stop Dose Admin Amlodipine Besylate 10 mg 08/23/17 09:00 08/23/17 10:06 Norvasc Tab* PO 10 mg QAM MICHEAL Administration Atorvastatin Calcium 10 mg 08/23/17 18:00 Lipitor* PO QPM MICHEAL Docusate Sodium 100 mg 08/22/17 11:00 08/23/17 08:37 Colace Cap* PO 100 mg DAILY MICHEAL Administration Lactated Ringer's 1,000 mls @ 125 mls/hr 08/22/17 11:00 08/22/17 21:29 Lactated Ringers 1000 Ml Bag* IV 125 mls/hr PER RATE MICHEAL Administration Ibuprofen 600 mg 08/22/17 10:32 08/23/17 08:37 Motrin Tab* PO 600 mg Q8H PRN Administration PAIN Levothyroxine Sodium 112 mcg 08/23/17 09:00 Synthroid Tab* PO QAM MICHEAL Lisinopril 5 mg 08/23/17 09:00 08/23/17 10:06 Prinivil Tab* PO 5 mg QAM MICHEAL Administration Metoprolol Succinate 75 mg 08/23/17 09:00 08/23/17 10:06 Toprol Xl Tab* PO 75 mg QAM MICHEAL Administration Ondansetron HCl 8 mg 08/22/17 16:57 08/22/17 17:13 Zofran 40 Mg Vial* IV 8 mg Q8H PRN Administration NAUSEA/VOMITING Oxycodone/Acetaminophen 2 tab 08/22/17 10:32 08/22/17 23:37 Percocet 5/325 Tab* PO 2 tab Q4H PRN Administration PAIN Potassium Chloride 10 meq 08/23/17 09:00 08/23/17 10:06 Klor Con Er Tab* PO 10 meq BID MICHEAL Administration Prochlorperazine 10 mg 08/23/17 08:59 Compazine Tab* PO Q6H PRN NAUSEA Tamoxifen Citrate 20 mg 08/23/17 11:00 Nolvadex* PO 1100 MICHEAL - Comments Comments: Patient is post op day #1, She admits to tolerating a regular diet, passing flatus, ambulating and voiding with no difficulty. Her pain is well controlled on PO meds. Objective - Intake and Output -: Intake & Output 08/21/17 08/22/17 08/23/17 08/24/17 06:59 06:59 06:59 06:59 Intake Total 3072 580 Output Total 1625 0 Balance 1447 580 Weight 269 lb Intake: IV Fluids 1942 LR 1942 Oral 1130 580 Output: Urine 1150 0 Barrios 425 Emesis 50 ADLs: Meal Record Start: 08/22/17 13: 05 Freq: Status: Active Protocol: Created 08/22/17 13:05 System (Rec: 08/22/17 13:05 System [id number]) Document 08/22/17 18:27 [id number] (Rec: 08/22/17 18:27 [id number] [id number]) Document 08/23/17 10:18 [id number] (Rec: 08/23/17 10:19 [id number] SSU-C09) Intake and Output Start: 08/22/17 13: 05 Freq: DAILY@0600,1400,2200 Status: Active Protocol: Created 08/22/17 13:05 System (Rec: 08/22/17 13:05 System [id number]) Document 08/22/17 14:00 [id number] (Rec: 08/22/17 14:08 [id number] SSU-C08) Document 08/22/17 14:10 [id number] (Rec: 08/22/17 14:10 [id number] SSU-C04) Document 08/22/17 16:36 [id number] (Rec: 08/22/17 16:36 [id number] SSU-C04) Document 08/22/17 17:00 [id number] (Rec: 08/22/17 17:01 [id number] SSU-C04) Document 08/22/17 18:47 [id number] (Rec: 08/22/17 18:48 [id number] SSU-C08) Document 08/22/17 22:00 [id number] (Rec: 08/22/17 22:36 [id number] SSU-M18) Document 08/22/17 22:37 [id number] (Rec: 08/22/17 22:37 [id number] SSU-M18) Document 08/23/17 00:33 [id number] (Rec: 08/23/17 00:33 [id number] SSU-C09) Document 08/23/17 06:00 [id number] (Rec: 08/23/17 06:06 [id number]) Vital Signs 08/22/17 08/22/17 08/22/17 11:15 11:33 11:47 Temperature 97.5 F Pulse Rate Respiratory 16 16 16 Rate Blood Pressure (mmHg) O2 Sat by Pulse Oximetry 08/22/17 08/22/17 08/22/17 12:59 13:05 14:06 Temperature 96.4 F 97.1 F Pulse Rate 85 79 Respiratory 16 18 15 Rate Blood Pressure 135/72 119/50 (mmHg) O2 Sat by Pulse 97 93 Oximetry 08/22/17 08/22/17 08/22/17 14:55 17:05 18:54 Temperature 96.8 F 97.4 F 97.0 F Pulse Rate 79 94 81 Respiratory 15 16 17 Rate Blood Pressure 112/52 153/78 145/63 (mmHg) O2 Sat by Pulse 94 100 96 Oximetry 08/22/17 08/22/17 08/22/17 19:00 20:00 21:00 Temperature Pulse Rate Respiratory 20 16 16 Rate Blood Pressure (mmHg) O2 Sat by Pulse Oximetry 08/22/17 08/22/17 08/23/17 23:29 23:37 01:30 Temperature 97.9 F Pulse Rate 89 Respiratory 16 20 18 Rate Blood Pressure 110/55 (mmHg) O2 Sat by Pulse 97 Oximetry 08/23/17 08/23/17 08/23/17 03:19 07:36 08:00 Temperature 97.6 F 98.3 F Pulse Rate 71 72 Respiratory 16 16 16 Rate Blood Pressure 109/60 147/81 (mmHg) O2 Sat by Pulse 96 98 Oximetry Laboratory Results - last 24 hr 08/23/17 05:03 WBC 10.5 RBC 4.01 Hgb 11.9 L Hct 35 MCV 86 MCH 30 MCHC 35 RDW 14 Plt Count 194 MPV 8.3 Neut % (Auto) 84.0 H Lymph % (Auto) 9.6 L Brown % (Auto) 5.8 Eos % (Auto) 0.3 Baso % (Auto) 0.3 Absolute Neuts (auto) 8.8 H Absolute Lymphs (auto) 1.0 Absolute Monos (auto) 0.6 Absolute Eos (auto) 0 Absolute Basos (auto) 0 Absolute Nucleated RBC 0 Nucleated RBC % 0.1 Surgical Physical Exam - Comments -: Patient is AAOx3 in no distress. VSS Afebrile Lungs CTA b/l CV RRR Abdomen soft, not distended, normal bowel sounds, tenderness around umbilical and low abdominal incision as expected. Incisions are clean/dry/intact with no erythema, discharge or induration. Both incisions covered with new dressings. Assessment and Plan - Assessment -: Post op day 1 Patiemnt has stable vital signs, tolerating regular diet, voiding without difficulty, ambulating and taking PO meds. Patient is stable for discharge today. - Plan Surgical Plan of Care: Discontinue IV, Discharge Planning - Patient is stable for discharge home today. Discharge instructions and wound care/precautions reviewed with the patient.
[2017-08-23] MEDS ORDERED: Tamoxifen TAB* 10 MG PO SCH (11:00)
[2017-08-23] MEDS: oxyCODONE/Acetamin 5/325 MG* TAB PO PRN (11:48)
[2017-08-23] MEDS ORDERED: Atorvastatin* 10 MG TAB PO SCH (18:00)
--- NOTE | 2017-08-29 12:55 | HP ---
ADMISSION HISTORY AND PHYSICAL: DATE OF ADMISSION: 08/22/17 HISTORY OF PRESENT ILLNESS: Mrs. Landeros is a 41-year-old lady with a diagnosis of breast cancer who has had a persistent left adnexal mass with a normal CA125. She is scheduled to undergo a laparoscopic bilateral salpingo- oophorectomy, possible laparotomy, on 08/22/17. The patient is aware of the indications, contraindications, material risks, benefits, common side effects, and complications of the procedure and its relevant alternatives prior to consent. PAST MEDICAL HISTORY: Breast cancer, morbid obesity, menorrhagia with secondary anemia, back pain, sciatica, thyroid disease, and hypertension. PAST SURGICAL HISTORY: section in 2000, section and tubal ligation in 2008. Wide excision of a breast cancer on 11/17/16, needle localization and excision of left breast cancer and axillary dissection on 11/10. MEDICATIONS: Current medications on admission: 1. Amlodipine. 2. Metoprolol succinate. 3. Levothyroxine. 4. Potassium chloride. 5. Iron. 6. Lisinopril. 7. Vitamin D. 8. Tamoxifen. 9. Vitamin C. ALLERGIES: No known drug allergies. FAMILY HISTORY: Father has hypothyroidism, diabetes, and hypertension. Mother has diabetes and hypertension, and a brother has diabetes. Sister with hypothyroidism and hypertension. SOCIAL HISTORY: Patient is single. Education: High school graduate. She is a nonsmoker. Denies alcohol or drug use. REVIEW OF SYSTEMS: The patient denies chest pain, shortness of breath, nausea, vomiting, or diarrhea. No urinary signs or symptoms. No constitutional signs or symptoms, and no pain complaints. PHYSICAL EXAMINATION GENERAL: This is a well-groomed, normal-appearing obese lady in no distress. VITAL SIGNS: Temperature is 98.6, pulse 84, respiratory rate of 18, blood pressure of 125/75. She is 5 feet tall. She weights 270 pounds with a BMI of 52. NECK: Thyroid is within normal limits with no thyromegaly. LUNGS: Clear to auscultation bilaterally. HEART: Shows a regular rate and rhythm with no abnormal heart sounds. ABDOMEN: Obese, nondistended. Normal bowel sounds. No rebound tenderness and no hepatosplenomegaly, and no CVA tenderness. BREASTS: Examination of the right breast is normal. There is no palpable mass or nodularity. No evidence of skin changes, nipple discharge, and dimpling. Left breast: There is evidence of a healed wide reexcision of the breast cancer tumor. Incision site is clean, dry, and intact with no erythema, no induration, no discharge, no apparent masses palpable, no nipple discharge, and no axillary adenopathy. PELVIC: External genitalia within normal limits. The urethra is normal. The bladder is normal to palpation. The cervix is normal. Vaginal mucosa is normal. Pelvic support is well. The uterus is of normal size, shape, and contour and mobility, and there is no tenderness on palpation. On bimanual exam , she does have a palpable mass on the left adnexal region. RECTAL: She has normal sphincter tone and no hemorrhoids or rectal masses noted. NEUROLOGIC: The patient is awake, alert, oriented x3. She has a grossly normal affect and in good eye contact. IMPRESSION: This is a 41-year-old with a diagnosis of breast cancer, post radiation treatment and chemotherapy on tamoxifen, with a persistent left adnexal mass. PLAN: Laparoscopic bilateral salpingo-oophorectomy, possible laparotomy. Please refer to the patient's history and physical dated 07/13/17, which is also included in the chart. [id number]/[facility] [place] #: [id number] MTDD
--- NOTE | 2017-08-29 22:49 | DS ---
DISCHARGE SUMMARY: DATE OF ADMISSION: 08/22/17 DATE OF DISCHARGE: 08/23/17 HOSPITAL COURSE: Ms. Landeros is a 41-year-old patient with a diagnosis of breast cancer who has had a persistent left adnexal mass. On the date of her admission , 08/22/17, she underwent a right salpingo-oophorectomy and a left oophorectomy via laparotomy. After the surgery, the patient was stable. She was transferred from the recovery room where she recovered well and went to the postoperative surgical unit. On the date of discharge, 08/23/17, the patient had been tolerating regular diet, was passing flatus, was able to ambulate and void without difficulty, and she was taking p.o. medications for pain. She was therefore deemed stable for discharge. She was discharged to follow up in my office in 1 week after her procedure. Discharge instructions were reviewed with the patient. She had a complete blood cell count on 08/23/17, which was within normal limits and the vital signs had remained stable and afebrile. Please refer to the patient's chart for complete review of her vital signs, laboratory values, etc. [id number]/[facility] #: [id number] MTDD
--- NOTE | 2017-08-29 22:57 | OP ---
DATE OF OPERATION: 08/22/17 - ROOM #332 DATE OF : 71 SURGEON: London Richardson MD ORNAMENTAL PAINTER: Brandi Mcfarland MD ANESTHESIA: General anesthetic with endotracheal intubation. PRE-OP DIAGNOSES: 1. Breast cancer. 2. Left adnexal cystic mass. POST-OP DIAGNOSES: 1. Breast cancer. 2. Left adnexal cystic mass, pending pathology. OPERATIVE PROCEDURE: Diagnostic laparoscopy followed by laparotomy with left oophorectomy and right salpingo-oophorectomy. ESTIMATED BLOOD LOSS: Less than 10 cc. SPECIMENS SENT TO PATHOLOGY: Left ovary and right tube and ovary. FLUIDS: She received 1800 cc of IV crystalloid fluid. URINE OUTPUT: 500 cc of clear urine. FINDINGS: The patient was noted laparoscopically to have a left ovarian cystic mass, which was circumferentially adherent to bowel with a precluding laparoscopic removal with left tube densely adherent to bowel as well. She had a normal right tube and ovary, normal uterus. Bowels within normal limits and normal bladder. DESCRIPTION OF PROCEDURE: The patient was taken to the operating room where she was identified. She was placed on the operating table where a general anesthetic with endotracheal intubation was obtained without difficulty. She was then placed in the dorsal lithotomy position, prepped and draped in normal sterile fashion. The bladder was catheterized with Barrios catheter and drained of clear urine. A speculum was introduced into the patient's vagina and the cervix was identified, grasped with a single-tooth tenaculum and through the cervix, a ClearView manipulator was introduced to mobilize the uterus. Attention was then brought on to the patient's abdomen and where a 1-cm infra- umbilical skin incision was made with a knife, carried through to the underlying layer of fascia. The fascia was brought up to the incision, incised with a knife sharply and extended laterally with a Genia clamp. Entry into the peritoneum was confirmed. Through this incision, a 10-mm blunt trocar was introduced and a 10-mm scope was then used to take a survey of the patient's intraabdominal content. Upon entry with the laparoscope, a survey of the patient's intraabdominal and pelvic anatomy revealed that left ovary was adherent circumferentially by bowel with filmy adhesions. The left tube was also adherent to bowel and was not readily visualized. The right ovary and right tube were within normal limits with no adhesions. The uterus appeared normal as well. At this point, we then proceeded to avoid the laparoscopy and proceeded with a laparotomy. The scope was removed from the patient's abdomen and the umbilical incision. The fascia was closed with 0 Polysorb suture in a running fashion and the skin was closed with a 4-0 Monocryl subcuticular stitch. We then proceeded to make a Pfannenstiel skin incision 4 cm above symphysis pubis with a knife and carried through to the underlying layer of fascia. The fascia was then nicked in the midline and extended laterally with curved Carlos scissors and the fascia was then grasped superiorly and inferiorly with Nneka clamps and dissected off sharply from the rectus muscle. The rectus muscle was in the midline bluntly. The peritoneum was identified, grasped with pickups, entered sharply with Metzenbaum scissors and extended superiorly and inferiorly sharply. A Mobius retractor was introduced into the incision and we then proceed to place the patient in a Trendelenburg position. The bowel was mobilized and tacked away with moist and laparotomy sponges. We then proceeded to separate the left ovary from the bowel with sharp dissection off the filmy adhesions surrounding it. Once we were able to completely free the left ovary, the infundibulopelvic ligament was identified. It was clamped with 2 Genia clamps. The ovary was then transected and sent to Pathology. A free tie of 0 Polysorb suture was then tied around the first clamp of the infundibulo-pelvic ligament followed by a Daphne stitch of 0 Polysorb suture and good hemostasis was noted at the pedicle. We could not identify or find the left fallopian tube. We then proceeded to perform a right salpingo-oophorectomy on the patient's right side with a LigaSure device. The infundibulopelvic was identified. We then grasped the infundibulopelvic ligament with the LigaSure. It was coagulated and transected. We continued to transect just beneath the fallopian tube and the fallopian tube and the right ovary were removed using coagulation and sharp dissection with the LigaSure device. At this point, the right tube and ovary were sent to the pathology. The pedicles from this surgery were noted to be completely hemostatic. We proceeded to irrigate the patient's abdomen. Irrigation fluid was removed. All the instruments and the sponges were removed from the patient's abdomen. The peritoneum was then closed using 3-0 Polysorb suture in a running fashion. The fascia was closed using 0 Polysorb suture in a running fashion and the skin was closed with a 4-0 Monocryl subcuticular stitch. Sponge, lap and needle counts were correct x2. She was then transferred to recovery room area in stable condition. [id number]/[facility] #: [id number] KATHERIN
== END 2017-08-23 13:15 | disposition home or self-care (01) ==
LOC: OR 06:22 → SSU 12:59
PROVIDERS: ADMIT Obstetrics & Gynecology; ATTEND Obstetrics & Gynecology
PROC: 0UT54ZZ Resection of Right Fallopian Tube, Percutaneous Endoscopic Approach (ICD-10-PCS; 2017-08-22)
PROC: 0UT24ZZ Resection of Bilateral Ovaries, Percutaneous Endoscopic Approach (ICD-10-PCS; principal; 2017-08-22 07:30)
DX: N83.8 Other noninflammatory disorders of ovary, fallopian tube and broad ligament (principal); C50.919 Malignant neoplasm of unspecified site of unspecified female breast; E66.01 Morbid (severe) obesity due to excess calories; N92.0 Excessive and frequent menstruation with regular cycle; D64.9 Anemia, unspecified; I10 Essential (primary) hypertension; E07.9 Disorder of thyroid, unspecified; Z79.899 Other long term (current) drug therapy
CPT/HCPCS: 36415; 85025; 88305; 96374; 96375; A9270-GY; G0378; J0330; J0690; J1100; J1170; J1240; J2250; J2300; J2704; J3010